=== PATIENT | female | born 1965 | race Caucasian/White ===

== ENCOUNTER → 2017-02-01 | Outpatient (CLI) | payer BC ==
[~2017-02-01] MED LIST: ADVAIR 1001 DISK W/D PO; ALLEGRA PO; COMBIVENT INH14.7 GM INH; COMBIVENT RESPIM4 GM IH; DULCOLAX5 MG PO; HYDROCODON-ACE1 EAC9 PO; LORTAB 7.5-5001 TAB PO; MOTRIN600 MG PO; PREDNISONE50 MG PO; ROBAXIN500 MG PO; SINGULAIR PO; TOPAMAX PO; VOLTAREN75 MG PO; ZANAFLEX4 M1 PO
--- NOTE | ~2017-02-01 | CR58 ---
[facility] A Service of [facility] RADIOLOGY TEXT RESULTS PATIENT: JOSE MIGUEL LOCATION: [facility] : 61 UNIT #: [id number] AGE: [address]: LORRI DAS APRN SEX: F ORDER DR: [id number] [address] [address] [id number] O MR#: [id number] Acc #: [id number] NAME: JOSE MIGUEL : 1965 SEX: F STUDY DATE/TIME: 02/01/2017 11:28 UNIT: [facility] ROOM: STUDY DESCRIPTION: CR Cervical Spine 2 or 3 Views Attending Physician: Lorri Das Aprn Referring Physician: Lorri Das Aprn Ordering Physician: Lorri Das Aprn Primary Care Physician: Batsheva Smith M.D. MEDICAL IMAGING REPORT This report is preliminary unless electronic signature is present. EXAM Cervical spine series. HISTORY Left-sided neck pain for the past 1-2 months with no known injury. TECHNIQUE Three views cervical spine were obtained and compared with 10/04/2012. FINDINGS Three views of the cervical spine show satisfactory preservation of the cervical lordosis. The cervical soft tissues are normal. All anterior and posterior elements in the cervical area are anatomically normal without identifiable fracture, dislocation, malignant lytic or sclerotic change, or arthritis. There is no congenital defect apparent. IMPRESSION Normal cervical spine. Dictated by... Jose Kumar M.D. THIS IS AN ELECTRONICALLY VERIFIED REPORT Jose Kumar M.D. at 02/02/2017 4:35 PM CHYNA/juanis TD: 02/02/2017 11:00 JOB #: [id number] MEDICAL IMAGING REPORT Page 1 of 1
== END | disposition home or self-care (01) ==
LOC: SLAB 10:35 → SRAD 10:35
DX: M54.2 Cervicalgia (principal)
CPT/HCPCS: 72040